=== PATIENT | female | born 1955 | race Caucasian/White ===

== ENCOUNTER 2021-09-09 20:23 | Inpatient (IN) | payer OTHER ==
[~2021-09-09] VITALS: Ht 157.5 cm; Wt 71.0 kg
--- NOTE | ~2021-09-09 | EMS ---
[address] [address] EMS Patient Care Report Name: PILAR MADRID Room #: REG SEBASTIAN Dee#: [id number] Admission: 09/09/21 Attend Phys: Discharge: Date of : 59 Report #: [id number] THIS REPORT FOR: //name// Report Transmitted: 09/09/2021 21:44 EMS Care Summary [place], [place]/[facility] Incident [id number] @ 09/09/2021 19:51 Incident Location [address] [place] [address]-A Patient PILAR MADRID Female, 66 Years 1955 Patient Address [address] [place] [address] [address] [address] Patient History Behavioral/Psychiatric Disorder,Congestive Heart Failure (CHF),Chronic Obstructive Pulmonary Disease (COPD),Diabetes,Hypertension (HTN),Stroke/CVA,Parkinson's Disease,Fibromyalgia,Gastro-Esophageal Reflux Disease (GERD),Urinary Tract Infection (UTI),Schizophrenia,Anemia,Deep Vein Thrombosis, Patient Allergies Sulfonamides allergy,Sulfa,Haldol,Other drug allergy, Chief Complaint general pain Disposition Transported No Lights/[facility] Dispatch Reason Sick Person Transported To [facility] Narrative pt found seated in wheelchair, a&o. staff reports that pt has had slurred [address] [address] EMS Patient Care Report Name: PILAR MADRID Room #: REG SEBASTIAN Dee#: [id number] Admission: 09/09/21 Attend Phys: Discharge: Date of : 59 Report #: [id number] speech and general weakness that has been getting worse over the past 1 wk. they are concerned that she is "getting septic" and want her transported to [facility] for evaluation. pt c/o her body hurting "all over" for past 2+ months. pt req eval at [facility] or [facility]. staff states pt is not her own guardian and for insurance reasons, she can only go to [facility]. pt to cot, VS, transport w/o change. Initial Vitals @20:04P: 107,R: 18,BP: 105/78,Pain: 4/10,GCS: 15,Glucose: 183,SpO2: 99,Revised Trauma: 12, Assessments @19:57MENTAL:No Abnormalities,SKIN:No Abnormalities,HEENT:Head/Face: No Abnormalities,LUNG SOUNDS:ABDOMEN:PELVIS//GI:EXTREMITIES:PULSE:Radial: 2+ Normal,NEURO:Slurred Speech, Impression Pain (Non-Traumatic) Procedures @20:00 Stretcher Response: Unchanged @19:57 ALS Assessment Response: Unchanged @20:04 3-Lead ECG Response: Unchanged Timeline 19:50,Call Received 19:50,Dispatch Notified 19:51,Dispatched 19:51,En Route 19:55,On Scene 19:57,At Patient 19:57,ALS Assessment,Response: Unchanged 20:00,Stretcher,Response: Unchanged 20:04,BP: 105/78 M,PULSE: 107,RR: 18 R,SPO2: 99 Ox,ETCO2: ,B,PAIN: 4,GCS: 15, 20:04,3-Lead ECG,Response: Unchanged 20:06,Depart Scene 20:20,At Destination 20:37,Call Closed Disclaimer v1.1 Copyright 2020 [employer] This EMS Care Summary contains data elements from the applicable legal record (which may be displayed differently). It is designed to provide pertinent information for the following purposes: continuity of care, clinical quality, [address] [address] EMS Patient Care Report Name: PILAR MADRID Lidya Room #: REG SEBASTIAN Dee#: [id number] Admission: 09/09/21 Attend Phys: Discharge: Date of : 59 Report #: [id number] and state data reporting. The complete legal record is available to ED staff and administrators of the receiving hospital in [employer]'s Patient Tracker. All data is provided "as is."
--- NOTE | ~2021-09-09 | O ---
[facility] [place] [address] [place] [address] OPERATIVE REPORT Name: PILAR MADRID Room #: 246-P ADM IN M.R.#: [id number] Admission: 09/10/21 Attend Phys: Rafael Johnson MD Discharge: Date of : 59 Report #: [id number] THIS REPORT FOR: cc: Long Chin MD, Srinath MD Patterson,Alexandre Menendez MD ~ DATE OF SERVICE: 09/11/2021 PREOPERATIVE DIAGNOSIS: Sepsis with concern for ischemic bowel. POSTOPERATIVE DIAGNOSIS: Normal bowel without evidence of ischemic bowel. OPERATION: Diagnostic laparoscopy. SURGEON: Alexandre Marc MD ANESTHESIA: General. ESTIMATED BLOOD LOSS: Minimal. SPECIMENS: None. DESCRIPTION OF PROCEDURE: After informed consent was obtained, the patient was brought to the operating room and placed supine. SCDs were placed and working and general anesthesia was induced. The abdomen was prepped and draped in the usual sterile fashion. A 5 mm incision was made in the left upper quadrant. A 5 mm trocar was placed under direct vision. Pneumoperitoneum was established. Two more 5 mm trocars were placed in the left side of the abdomen. I began by examining the small bowel. I was able to grasp the small bowel and examine all of the small bowel from the cecum to the ligament of Treitz. There was no evidence of small bowel ischemia and it was all normal in color. I examined the colon. The ascending colon was normal. The transverse colon was identified. The sigmoid colon was identified. There was no evidence of ischemia. The liver was somewhat cirrhotic. There was scarring up in the right upper quadrant in the gallbladder fossa presumably from a laparoscopic cholecystectomy. Stomach appeared normal as well. The ports were then removed under direct vision. The skin was closed with 4-0 Monocryl. Incisions were dressed with Steri-Strips. COMPLICATIONS: None. DISPOSITION: The patient was taken to recovery in satisfactory condition. By: 1540 [id number] Alexandre Marc MD /nt
[2021-09-09 20:32] VITALS: BP 111/83
[2021-09-09 21:08] LABS: ABSOLUTE NEUTROPHILS 6.2 thou/uL (1.4-8.2); BASOPHILS 1.4 % (0.0-2.0); EOSINOPHILS 0.9 % (0.0-3.0); HEMATOCRIT 30.9 % (37.0-47.0); HEMOGLOBIN 9.4 gm/dL (12.0-15.0); LYMPHOCYTES 29.4 % (24.0-44.0); MCH 24.4 pg (26.0-34.0); MCHC 30.3 g/dL (28.0-37.0); MCV 80.3 fL (80.0-100.0); MONOCYTES 8.7 % (1.0-8.0); PLATELET COUNT 527 thou/uL (150-400); POLYS 59.6 % (36.0-66.0); RBC 3.85 mil/uL (4.20-5.00); RDW 16.9 % (10.5-14.5); WBC 10.5 thou/uL (4.0-11.0)
[2021-09-09 21:15] LABS: CALCIUM 8.6 mg/dL (8.5-10.1); CREATININE 1.5 mg/dL (0.6-1.0)
[2021-09-09 21:17] LABS: POTASSIUM 3.6 mmol/L (3.5-5.1)
[2021-09-09] MEDS ORDERED: ASA81BEC PO (21:35)
[2021-09-09] MEDS ORDERED: ELIQUIS2.5 MG PO (21:35)
[2021-09-09] MEDS ORDERED: XANAX 0.5 MG0.5 M1 PO (21:35)
[2021-09-09] MEDS ORDERED: LIPITOR 20 MG T20 M1 PO (21:36)
[2021-09-09] MEDS ORDERED: ATIVAN1 M1 IM (21:36)
[2021-09-09] MEDS ORDERED: DULOXETINE HCL30 MG PO (21:45)
[2021-09-09] MEDS ORDERED: IPRAT-ALBUT 0.5-3 ML INH (21:46)
[2021-09-09] MEDS ORDERED: OLANZAPINE ODT5 MG PO (21:46)
[2021-09-09] MEDS ORDERED: METOPROLOL TART25 MG PO (21:46)
[2021-09-09] MEDS ORDERED: KLOR-CON M2020 MEQ PO (21:47)
[2021-09-09] MEDS ORDERED: PROTONIX40 M2 PO (21:47)
[2021-09-09 22:15] LABS: URINE BILIRUBIN NEGATIVE (Negative); URINE BLOOD 2+ (Negative); URINE CLARITY SL CLOUDY; URINE COLOR YELLOW; URINE GLUCOSE-RANDOM* NEGATIVE (Negative); URINE KETONES NEGATIVE (Negative); URINE NITRITE-REFLEX NEGATIVE (Negative); URINE PROTEIN (DIPSTICK) TRACE (Negative)
[2021-09-09 22:18] LABS: URINE LEUKOCYTES-REFLEX 2+ (Negative)
[2021-09-09 22:22] LABS: BACTERIA-REFLEX >30 Many /HPF (None Seen); CASTS None Seen /LPF (None Seen); CRYSTALS None Seen /LPF (None Seen); SQUAMOUS 0-3 Few /LPF (0-3); URINE RBC 3-10 Few /HPF (NONE SEEN)
[2021-09-09 22:23] LABS: WBC CLUMPS Few (None Seen)
[2021-09-10] VITALS (37 sets, daily range): BP systolic 89–134; BP diastolic 59–92
--- NOTE | 2021-09-10 03:50 | NUR ---
PT WAS ADMITTED FROM THE ER IN A STABLE CONDITION.PT HAD EMESIS X2 IMMEDIATELY SHE GOT ON THE FLOOR.ADMISSION HX,EDUCATION AND ASSESSMENT COMPLETED.LAB CRITICAL LACTIC ACID OF 5.1,MANAGER OF RADIOLOGY ON DUTY NOTIFIED,ORDER NOTED AND CARRIED OUT.PT ON TELE,ST.PT STILL NEED SPUTUM CX.CALL LIGHT WITHIN REACH.
--- NOTE | 2021-09-10 08:15 | EKG ---
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: : 1955 Requested By: Shen Fall Order Number: [id number] MD: Lito Gusman Measurements Intervals [place] Rate: 109 P: 71 CO: 136 QRS: 91 QRSD: 95 T: 75 QT: 504 QTc: 680 Interpretive Statements Sinus tachycardia Probable left atrial enlargement Anterior infarct, old Prolonged QT interval No previous ECG available for comparison Electronically Signed On 09-10-2021 8:15:08 BACK OFFICE MEDICAL ASSISTANT by Lito Gusman [email or web address] <ELECTRONICALLY SIGNED> By: Lito Gusman MD, [facility] 09/10/21814 34 34 Lito Gusman MD, FACC /EPI
--- NOTE | 2021-09-10 09:39 | NUR ---
Assumed care of pt at 0700. Pt alert but forgetful. Critical lactic acid. Provider notified. New orders noted. ID consulted, CT scan, and labs ordered. Pt to be transferred to ICU. Waiting on bed assignment. Pt tachycardic on tele monitor. C/o back pain. IVF infusing. Call light within reach. Fall precautions in place. Will continue to monitor.
[2021-09-10 12:54] LABS: ALBUMIN 2.6 g/dL (3.4-5.0); DIRECT BILIRUBIN 1.4 mg/dL (<0.1-0.2); TOTAL BILIRUBIN 2.2 mg/dL (0.2-1.0); TOTAL PROTEIN 7.4 g/dL (6.4-8.2)
[2021-09-10 13:00] LABS: INR 2.74; PROTIME 28.5 Seconds (10.5-12.1)
[2021-09-10 13:10] LABS: BE(vivo) -10.6 mmol/L (-2 to +3); HCO3 13.9 mmol/L (22.0-26.0); PCO2 26.7 mmHg (35.0-45.0); PO2 78.9 mmHg (80.0-100.0); pH 7.335 (7.360-7.450); sO2 95.2 % (92.0-98.0)
--- NOTE | 2021-09-10 16:37 | NUR ---
RT IJ PLACED IN ICU
--- NOTE | 2021-09-10 18:28 | NUR ---
PT ARRIVED TO UNIT AT 1330. PT WAS COMPLAINING OF A LOT OF PAIN. PT IS NPO SO RN CALLED DR AMOS AND GOT AN ORDER FOR DILAUDID. PT HAD ORDERS FOR TRANSFUSION OF 2 UNIT OF FFP. LAB NEVER CAME UNTIL 1803 TO GET TYPE AND SCREEN. RN CALLED 3 DIFFERENT TIMES TO HAVE THEM COME TO PUT BAND ON PT AND RN DRAW LAB. PT IS ALSO TO HAVE A CTA OF THE ABD AND PELVIS. RN UNABLE TO LEAVE UNIT DUE TO ONLY ONE OTHER NURSE IN ICU POD 2 WITH RN. WELL LOGGING CAPTAIN WAS UNABLE TO HELP. RN CALLED CT TWICE WITH NO ANSWER TO LET THEM KNOW THAT IT WILL BE TRAFFIC SIGNAL SUPERVISOR MAINTENANCE RN THAT BRINGS HER TO CT. PT HAD A CETNRAL LINE PLACED TODAY. CONSENT WAS RULED MEDICAL NECESSITY WITH DR AMOS SIGNING IT. PT HAD XRAY OF CHEST TO CONFIRM PLACEMENT OF CENTRAL LINE. RN NOTIFIED IV NURSE. IV NURSE SAID THAT IT WAS IN THE RIGHT PLACE AND SHE CONFIRMED IT WITH THE DEVICE THAT SHOWS THE RHYTHM BASED ON WHERE THE TIP OF THE CATHETER IS PLACED. PT ANNALISA KATZ VISITED TODAY AND SIGNED THE BLOOD CONSENT. 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 WHERE PT IS NORMALLY SEEN. PT IS ALSO A SMOKER. RN WILL ELAVE MESSAGE WITH DR JAQUEZ ABOUT TUMOR. WILL CONITUE TO MONITOR.
--- NOTE | 2021-09-10 22:05 | NUR ---
TWO NURSES WITNESSED VERBAL CONSENT FOR POSSIBLE PARACENTISIS IN THE AM. CONSENT OBTAINED FROM BOLIVAR MALAVE. PER US REQUEST TO OBTAIN CONSENT.
--- NOTE | 2021-09-10 22:24 | NUR ---
PT SLEEPING IN BED. EASILY AROUSED BY NAME. AWAKENS OPENS EYES AND SMILES, FOLLOWS COMMANDS. MINIMAL VERBAL RESPONSE TO NURSE. PALE COOL SKIN TONE. IVF AND RIJ INTACT. JAMES TO DD, LIGHT YELLOW URINE. O2 NC 2L, LUNGS WHEEZES. TALKED WITH PT PRODUCTION LAPPING MACHINE OPERATOR AND RECEIVED CONSENT FOR AM PARACENTISIS. PT REMAINS NPO. TELE ST. PROVIDED NS BOLUS.
[2021-09-11] VITALS (45 sets, daily range): BP systolic 97–136; BP diastolic 50–113
--- NOTE | 2021-09-11 00:25 | NUR ---
PT TAKEN TO CTA, PT SCREAMED REPETITIVELY THAT SHE WANTED HER [employer] BOOK, WATER DURING TRANSPORT. PT WOULD INTERMITTENTLY SETTLE DOWN AND NOT VERBALIZE OR YELL HER REQUESTS. PT C/O BACK PAIN UPON RETURN AND PRN PROVIDED. PT IS NPO MOUTH SWABS PROVIDED. MRSA SWAB SENT TO LAB.
[2021-09-11 02:07] LABS: INR 2.25; PROTIME 23.6 Seconds (10.5-12.1)
[2021-09-11 04:18] LABS: HEMATOCRIT 30.1 % (37.0-47.0); HEMOGLOBIN 8.8 gm/dL (12.0-15.0); MCH 24.4 pg (26.0-34.0); MCHC 29.3 g/dL (28.0-37.0); MCV 83.1 fL (80.0-100.0); RBC 3.62 mil/uL (4.20-5.00); WBC 24.7 thou/uL (4.0-11.0)
[2021-09-11 04:25] LABS: CALCIUM 7.9 mg/dL (8.5-10.1); CREATININE 1.7 mg/dL (0.6-1.0); MAGNESIUM 1.5 mg/dL (1.8-2.4); POTASSIUM 3.6 mmol/L (3.5-5.1)
--- NOTE | 2021-09-11 11:22 | 2DMMODE ---
[facility] [place] [address] [address] 2 D/M-MODE ECHOCARDIOGRAM Name: PILAR MADRID Room #: 246-P ADM IN M.R.#: [id number] Admission: 09/10/21 Attend Phys: Rafael Johnson MD Discharge: Date of : 59 Report #: [id number] THIS REPORT FOR: cc: Long Chin MD, Srinath MD Mancuso,Bc Garcia MD [facility] ~ APPROVED REPORT Study performed: 09/11/2021 08:57:06 EXAM: Comprehensive 2D, Doppler, and color-flow Echocardiogram Patient Location: ICU Room #: 246 Status: routine BSA: 1.47 HR: 108 bpm BP: 136/113 mmHg Rhythm: Tachycardia Other Information Study Quality: Good Indications COPD Diabetes Dyspnea Tachycardia Hypertension/HDD 2D Dimensions RVDd: 42.22 mm IVSd: 9.29 (7-11mm) LVOT Diam: 17.60 (18-24mm) LVDd: 58.45 mm PWd: 10.46 (7-11mm) Ascending Ao: 28.43 (22-36mm) LVDs: 53.10 (25-40mm) Left Atrium: 38.78 (27-40mm) Aortic Root: 28.66 mm IVC: 20.00 mm Volumes Left Atrial Volume (Systole) Single Plane 4CH: 47.67 mL Single Plane 2CH: 51.22 mL LA ESV Index: 37.00 mL/m2 Aortic Valve [facility] [address] [place] [address] 2 D/M-MODE ECHOCARDIOGRAM Name: PILAR MADRID Room #: 246-P [facility] IN .R.#: [id number] Admission: 09/10/21 Attend Phys: Rafael Johnson, Discharge: Date of : 59 Report #: [id number] AoV Peak Fredy.: 1.40 m/s AO Peak Gr.: 7.84 mmHg LVOT Max P.38 mmHg LVOT Max V: 1.05 m/s ALICIA Vmax: 1.82 cm2 Pulmonary Valve PV Peak Fredy.: 0.85 m/s PV Peak Gr.: 2.87 mmHg Tricuspid Valve TR Peak Fredy.: 3.08 m/s TR Peak Gr.: 37.89 mmHg PA Pressure: 48.00 mmHg Left Ventricle Left ventricle is dilated. There is global hypokinesis of the left ventricle. There is normal left ventricular wall thickness. Left ventricular ejection fraction is severely decreased. LVEF is 20-25%. This study is not technically sufficient to allow evaluation of the LV diastolic function. Right Ventricle Right ventricle is at the upper limits of normal. The right ventricular systolic function is normal. Atria Left atrium is dilated. Right atrium is dilated. Aortic Valve The aortic valve is normal in structure. No aortic regurgitation is present. There is no aortic valvular stenosis. Mitral Valve The mitral valve is normal in structure. Moderate to severe mitral regurgitation No evidence of mitral valve stenosis. Tricuspid Valve The tricuspid valve is normal in structure. There is moderate to severe tricuspid regurgitation. Estimated PAP 48 mmHg. There is moderate pulmonary hypertension. Pulmonic Valve The pulmonary valve is normal in structure. There is no pulmonic valvular regurgitation. Great Vessels The aortic root is normal in size. IVC is dilated and collapses [facility] [address] [place] [address] 2 D/M-MODE ECHOCARDIOGRAM Name: PILAR MADRID Room #: 246-P [facility] IN M.R.#: [id number] Admission: 09/10/21 Attend Phys: Rafael Johnson, Discharge: Date of : 59 Report #: [id number] <50% with inspiration. Pericardium There is no pericardial effusion. <Conclusion> Left ventricle is dilated. Left ventricular ejection fraction is severely decreased. There is global hypokinesis of the left ventricle. LVEF is 20-25%. This study is not technically sufficient to allow evaluation of the LV diastolic function. Right ventricle is at the upper limits of normal. Left atrium is dilated. The aortic valve is normal in structure. Moderate to severe mitral regurgitation There is moderate to severe tricuspid regurgitation. Estimated PAP 48 mmHg. There is moderate pulmonary hypertension. The aortic root is normal in size. There is no pericardial effusion. <ELECTRONICALLY SIGNED> By: Bc De Anda MD, FACC 09/11/211121 21 21 Bc De Anda MD, FACC /INF
--- NOTE | 2021-09-11 11:40 | HC ---
[facility] [address] [place] [address] CONSULTATION Name: PILRA MADRID Room #: 246-P ADM IN M.R.#: [id number] Admission: 09/10/21 Attend Phys: Rafael Johnson MD Discharge: Date of : 59 Report #: [id number] THIS REPORT FOR: cc: Long Chin MD, Srinath MD Geha,Tyler Gracia MD ~ DATE OF SERVICE: 09/10/2021 REASON FOR CONSULTATION: I was asked to evaluate concerning sepsis. HISTORY OF PRESENT ILLNESS: The patient is a 66-year-old with underlying history of Parkinson's disease and schizophrenia along with diabetes, who had been in usp unit in [facility] who has had a change in mental status over the last several days associated with weakness and back pain. She has had cough with purulent sputum production. No nausea, vomiting or diarrhea reported. No dysuria reported. The patient currently was unable to give me any significant history. She did complain of back pain. REVIEW OF SYSTEMS: A 14-point review was negative other than what has been described above as the patient denied any other symptoms. PAST MEDICAL HISTORY: Parkinson's disease, schizophrenia, gastroesophageal reflux, COPD, diabetes, congestive heart failure, seizure disorder, hypertension, fibromyalgia, anemia, hyperlipidemia, DVT. SOCIAL HISTORY: Nonsmoker, no significant alcohol intake. long-term resident at the present time. FAMILY HISTORY: Not available. ALLERGIES: CARBAMAZEPINE, HALOPERIDOL, SULFA. MEDICATIONS: As noted on her MAR, having received vancomycin, cefepime and now Zosyn. PHYSICAL EXAMINATION: VITAL SIGNS: Temperature is 36.8, pulse 108, respiratory rate 16, blood pressure 105/73, pulse ox 97% on room air. She was lethargic and would yell out at times. She appeared confused. SKIN: Without rash or decubitus. HEENT: No palpable adenopathy. Eyes without scleral icterus or conjunctivitis. Mouth without mucositis. NECK: Supple. LUNGS: Clear. HEART: Regular without appreciable murmur, gallop or rub. She was tachycardic. ABDOMEN: Protuberant, however, was soft, did not appear tender or have any [facility] [address] [place] [address] CONSULTATION Name: PILAR MADRID Room #: [facility]- ADM IN .R.#: [id number] Admission: 09/10/21 Attend Phys: Rafael Johnson MD Discharge: Date of : 59 Report #: [id number] hepatosplenomegaly or mass. There was definitely no guarding or rebound. No definite CVA tenderness. She had some ecchymosis to the left flank. Spine was nontender. Genitorectal examination was not performed. EXTREMITIES: Without clubbing or cyanosis. She had 1+ lower extremity edema. Pulses were palpable in the extremities. Cranial nerves intact. Strength in upper and lower extremities was symmetric. Mood was sedate and confused. LABORATORY DATA: Reviewed. MICROBIOLOGY: Reviewed. IMAGING: CT scan of the chest, abdomen and pelvis as well as head reviewed. Chest x-ray reviewed. IMPRESSION: This is a 66-year-old with underlying schizophrenia, diabetes, chronic obstructive pulmonary disease, presents with severe sepsis with metabolic encephalopathy, lactic acidosis with anemia and thrombocytosis. She also has evidence of acute kidney injury and hepatitis with elevated alkaline phosphatase. She has had previous cholecystectomy. No other liver lesions noted. No intra-abdominal abscess noted. She does have ascites. This is in the setting of schizophrenia, Parkinson's disease, diabetes, COPD, hypertension, depression, and DVT. Recommend continuing broad antibiotic coverage. Check blood cultures, urine culture, paracentesis for cell count and culture. Await surgical consultation and check vascular studies to further assess for bowel ischemia. Correct her coagulopathy. Check echocardiogram. <ELECTRONICALLY SIGNED> By: Tyler Smith MD 09/11/21 1140 1354 1721 Tyler Smith MD /nt
[2021-09-11 12:33] LABS: BE(vivo) -17.6 mmol/L (-2 to +3); HCO3 10.9 mmol/L (22.0-26.0); PCO2 35.8 mmHg (35.0-45.0); PO2 66.8 mmHg (80.0-100.0); sO2 85.9 % (92.0-98.0)
[2021-09-11 12:34] LABS: pH 7.101 (7.360-7.450)
--- NOTE | 2021-09-11 14:05 | NUR ---
VAT CALLED PT PULLED OUT RIJ. REPLACEMENT NEEDED. PT VERY CONFUSED AND UNCOOPERATIVE, TRYING TO SIT UP. LIJ WAS WIDELY PATENT WITH USG. 6FR TL JACC 20CM INSERTED X1 STICK TO 3CM EXTERNAL. BLEEDING AT SITE, GAUZE AND PRESSURE APPLIED. STAT CXR ORDERED
--- NOTE | 2021-09-11 14:18 | NUR ---
CXR CONFIRMED LIJ PLACEMENT, IJ RELEASED FOR IMMEDIATE USE PER PROTOCOL.
--- NOTE | 2021-09-11 15:08 | NUR ---
PT IS NOT PROGRESSING TOWARDS DISCHARGE AT THIS TIME, AT THE TIME OF RN'S CARE IT WAS NOTED THAT PT'S LACTIC ACID VALUE IS INCREASING, MD PRATT/BETTE MADE AWARE, CRITICAL PH LEVEL ALSO MADE AWARE TO BOTH PROVIDERS. PT WAS NEEDING INCREASING OXYGENATION THROUGHOUT THE DAY FROM 2L MANAGER SUPPORT THE PT NEEDED TO THE NRB. CONCERNS FOR ISCHEMIC BOWEL RAISED, IS TO PERFORM DIAGNOSTIC LAPARSCOPY/LAPAROTOMY, FAMILY MADE AWARE. PT RIPPED OUT JR CENTRAL LINE, FAMILY MADE AWARE, NEW LINE PLACED FAMILY MADE AWARE AND CONSENT OBTAINED. PT ALSO RULED OUT FOR ASCITES FROM RADIOLOGIST AND DID NOT RECEIVE THE PARACFENTESIS. FFP ORDERED BY , FFP CALLED OUT TO THE BLOOD BANK, NOTIFIED THE STAFF THAT PT WILL NEED IT AT THE OR AT THE TIME OF ARRIVAL PT'S BLOOD SUGAR WAS AT 61, 1 AMP OF GLUCOSE GIVEN PER PROTOCOL, WILL HAVE TO RECHECK BLOOD SUGAR AT THE OR PER RECHECK POLICY, OR STAFF MADE AWARE ZOSYN NOT GIVEN DUE TO PRIORITY OF CARE, AND NEEDING FOR INFUSION OF LR/ .45NS/AND HCO3. OR STAFF MEMBERS GIVEN THE MEDICATION, THEM TO INFUSE. RN INTERVENED ALL MEASURES FOR THE PATIENT PROMPT POSSIBLE AND PT AT THIS TIME IS EN ROUTE TO OR.
--- NOTE | 2021-09-11 16:52 | NUR ---
INITIAL ASSESSMENT: RUBEN reviewed chart and spoke with nursing and attending physician. Pt was admitted from [facility] due to sepsis. Pt is in the ICU and went to surgery this afternoon. Pt currently off the unit. RUBEN updated jamal Fisher liaison at [place]. Per chart, pt with hx of Parkinson's Disease/schizophrenia/COPD/Seizure disorder. RUBEN faxed clinical info to the facility for review. RUBEN will follow up with pt and/or family following surgery and is following to assist as needed with discharge planning.
[2021-09-11 17:16] LABS: BE(vivo) -16.7 mmol/L (-2 to +3); HCO3 14.1 mmol/L (22.0-26.0); PCO2 58.8 mmHg (35.0-45.0); PO2 208.1 mmHg (80.0-100.0); pH 6.998 (7.360-7.450); sO2 98.8 % (92.0-98.0)
[2021-09-11 19:37] LABS: BE(vivo) -6.2 mmol/L (-2 to +3); HCO3 19.5 mmol/L (22.0-26.0); PCO2 39.5 mmHg (35.0-45.0); PO2 76.9 mmHg (80.0-100.0); pH 7.311 (7.360-7.450); sO2 94.3 % (92.0-98.0)
[2021-09-11 21:47] LABS: HEMATOCRIT 24.2 % (37.0-47.0); HEMOGLOBIN 7.7 gm/dL (12.0-15.0); MCH 25.9 pg (26.0-34.0); MCHC 31.8 g/dL (28.0-37.0); MCV 81.6 fL (80.0-100.0); RBC 2.97 mil/uL (4.20-5.00); RDW 16.7 % (10.5-14.5); WBC 22.3 thou/uL (4.0-11.0)
[2021-09-12] VITALS (46 sets, daily range): BP systolic 107–130; BP diastolic 55–85
[2021-09-12 04:43] LABS: BE(vivo) -3.5 mmol/L (-2 to +3); HCO3 20.5 mmol/L (22.0-26.0); PCO2 32.4 mmHg (35.0-45.0); PO2 87.1 mmHg (80.0-100.0); pH 7.419 (7.360-7.450); sO2 96.9 % (92.0-98.0)
--- NOTE | 2021-09-12 04:47 | NUR ---
PT TEMP AT 0400 UP TO 103.3 F ORALLY. PT STILL HAD BEAR HUGGER ON AT MEDIUM TEMP. BEAR HUGGER NOW OFF, PT UNCOVERED, AND WILL CONTINUE TO MONITOR TEMP. LACTIC ACID TRENDING DOWN, STARTED AT 10.9 NOW DOWN TO 7.8 OF 020. URINE OUTPUT HAD BEEN < 10 CC/HR. PT GIVEN LASIX IVP PER ORDER DR. PRATT AND URINE OUTPUT HAS BEEN 30-40 CC/HR SINCE 99. QUAD STRENGTH LEVOPHED STARTED AT 0145 FOR SBP <90 AND MAP < 60, CURRENTLY AT 6 MCG/MIN. PT WAS CHANGED TO PC/AC VENTILATION AT 0100 PT WAS DYSYNCHRONOUS WITH VENT. CURRENT VENT SETTINGS PC 22, AC 18, PEEP 8, PT RETURN Tv 550-600, MINUTE VOLUME 8-10. CVP WAS 24 AT BEGINNING OF SHIFT NOW DOWN TO 14-17.
[2021-09-12 05:46] LABS: ABSOLUTE NEUTROPHILS 13.1 thou/uL (1.4-8.2); BASOPHILS 0.1 % (0.0-2.0); HEMATOCRIT 23.4 % (37.0-47.0); HEMOGLOBIN 7.2 gm/dL (12.0-15.0); MCH 24.5 pg (26.0-34.0); MCHC 30.7 g/dL (28.0-37.0); MCV 79.7 fL (80.0-100.0); MONOCYTES 6.8 % (1.0-8.0); PLATELET COUNT 348 thou/uL (150-400); POLYS 88.1 % (36.0-66.0); RBC 2.94 mil/uL (4.20-5.00); RDW 16.9 % (10.5-14.5); WBC 14.9 thou/uL (4.0-11.0)
[2021-09-12 05:52] LABS: APTT 36.7 Seconds (24.5-32.8); INR 2.54; PROTIME 26.5 Seconds (10.5-12.1)
[2021-09-12 06:05] LABS: ALBUMIN 2.2 g/dL (3.4-5.0); CALCIUM 6.9 mg/dL (8.5-10.1); CREATININE 2.3 mg/dL (0.6-1.0); MAGNESIUM 1.2 mg/dL (1.8-2.4); TOTAL BILIRUBIN 1.4 mg/dL (0.2-1.0); TOTAL PROTEIN 5.8 g/dL (6.4-8.2)
[2021-09-12 06:30] LABS: POTASSIUM 2.9 mmol/L (3.5-5.1)
--- NOTE | 2021-09-12 08:09 | NUR ---
ORDERS FOR EVAL AND TREAT HOWEVER Pt HAD SURGERY YESTERDAY AND NOW ON VENT AND IN RESTRAINTS. WILL PLACE ON HOLD AND AWAIT NEW ORDERS WHEN APPROPRIATE
--- NOTE | 2021-09-12 12:08 | NUR ---
RUBEN reviewed chart and spoke with nursing and attending physician. Pt remains in ICU. Pt is intubated and in restraints. Pt had surgery yesterday. Pt to have a thoracentesis today. OG tube to be placed and tube feeding will be started. RUBEN updated jamal Fisher liaison at [facility]. No family present at bedside. RUBEN is following to assist as needed with discharge planning.
[2021-09-12 13:10] LABS: COLOR YELLOW; SOURCE THORACENTESIS; TOTAL VOLUME 65 mL
[2021-09-12 13:11] LABS: CLARITY CLEAR
[2021-09-12 13:41] LABS: BF NUCLEATED CELLS 387 /mm3; BF RBC 782 /mm3
[2021-09-12 14:17] LABS: MAGNESIUM 2.8 mg/dL (1.8-2.4); POTASSIUM 3.4 mmol/L (3.5-5.1)
[2021-09-12 17:35] LABS: BF MACROPHAGE 33 %; BF NEUTROPHILS 38 %
[2021-09-13 03:48] VITALS: BP 96/66
[2021-09-13 05:27] LABS: HEMATOCRIT 23.3 % (37.0-47.0); HEMOGLOBIN 7.3 gm/dL (12.0-15.0); MCH 24.8 pg (26.0-34.0); MCHC 31.4 g/dL (28.0-37.0); RBC 2.95 mil/uL (4.20-5.00); RDW 17.2 % (10.5-14.5)
[2021-09-13 06:05] LABS: ALBUMIN 1.8 g/dL (3.4-5.0); CALCIUM 6.6 mg/dL (8.5-10.1); CREATININE 2.5 mg/dL (0.6-1.0); MAGNESIUM 2.1 mg/dL (1.8-2.4); TOTAL BILIRUBIN 1.4 mg/dL (0.2-1.0); TOTAL PROTEIN 5.4 g/dL (6.4-8.2)
[2021-09-13 06:18] LABS: POTASSIUM 2.6 mmol/L (3.5-5.1)
--- NOTE | 2021-09-13 13:13 | NUR ---
RN TURNED PROPOFOL GTT OFF AT 0907. PT HAS SHOWN NO RESPONSE YET. WILL CONTINUE TO [facility] FOR NEURO RESPONSE. RN CHECKED PT 1200 TUBE FEED RESIDUAL. RESIDUAL WAS 250 ML. PT HAD RECIEVED A 250 ML WATER BOLUS SINCE LAST TUBE FEED RESIDUAL CHECK. RN CONTINUED TUBE FEED AT GOAL RATE OF 35 ML/HR. RN TURNED OFF LEVOPHED DRIPP AT 1300. RN WILL COONTINUE TO MONITOR PT BP VIA ARTERIAL LINE. RN SANTHOSH PT POTASSIUM FOR REDRAW AFTER REPLCED 2 POTASSIUM BAGS FOR 2.6 POTASSIUM THIS AM. APTT DRAWN AT 1300 FOR HEPARIN GTT.
--- NOTE | 2021-09-13 15:54 | NUR ---
RUBEN reviewed chart and spoke with nursing and attending physician. Pt remains in ICU. Pt is intubated. POD #2. Pt is on heparin gtt. Tube feedings through OG tube. RUBEN updated Diane at [facility]. SW to fax clinical updates for review. RUBEN is following to assist as needed with discharge planning.
[2021-09-13 23:36] VITALS: BP 106/64
[2021-09-14 01:21] VITALS: BP 93/57
[2021-09-14 02:43] LABS: ALBUMIN 1.8 g/dL (3.4-5.0); CALCIUM 6.9 mg/dL (8.5-10.1); CREATININE 2.4 mg/dL (0.6-1.0); HEMATOCRIT 26.6 % (37.0-47.0); HEMOGLOBIN 8.2 gm/dL (12.0-15.0); MAGNESIUM 1.9 mg/dL (1.8-2.4); MCH 24.2 pg (26.0-34.0); MCHC 30.8 g/dL (28.0-37.0); MCV 78.5 fL (80.0-100.0); POTASSIUM 3.3 mmol/L (3.5-5.1); RBC 3.39 mil/uL (4.20-5.00); RDW 17.2 % (10.5-14.5); TOTAL BILIRUBIN 1.3 mg/dL (0.2-1.0); WBC 16.1 thou/uL (4.0-11.0)
--- NOTE | 2021-09-14 06:33 | NUR ---
PT HEART RATE ELEVATED TO 160'S AFTER BATH. PRN METOPROLOL GIVEN AND AMIODARONE GTT STARTED PER CARDIOLOGY GASKET INSPECTOR DOCTOR. SEE CHARTING. PT HEART RATE BACK DOWN TO LOW 100'S WHICH IS WHERE IT HAD BEEN PRIOR TO BATH.
--- NOTE | 2021-09-14 12:22 | NUR ---
RN KEPT PT TUBE FEED ON THIS MORNING WHEN CHECKING RESIDUAL AT 0800. PT HAD RECEIVED A WATER FLUSH VIA KANGAROO PUMP. RN HELD TUBE FEED AFTER 1200 TF RESIDUAL BC PT HAD NOT RECEIVED A WATER FLUSH AND RESIDUAL WAS 300. RN WILL CHECK RESIDUAL AGAIN AT 1300 WHEN RN TURNS TUBE FEED BACK ON.
[2021-09-14 16:06] LABS: BODY FLUID ALBUMIN 0.8 g/dL (Not Estab.); BODY FLUID AMYLASE 43 U/L (()); BODY FLUID GLUCOSE 265 mg/dL (()); BODY FLUID LDH 187 IU/L (())
--- NOTE | 2021-09-14 16:19 | NUR ---
RUBEN reviewed chart and spoke with nursing and attending physician. Case also discussed during ICU rounds. Pt remains intubated. Pt has been off sedation. RUBEN spoke with pt's listed contact, Frances Shea, via phone. Introduced role of RUBEN. Frances states that she has been the point of contact for pt for while. The pt lived with Frances's parents for a number of years and Frances's family has always taken care of her. Pt has two brothers. Per Frances, pt does have a DPOA document, which appoints Frances's Dad, Matti, as her DPOA. Frances to bring a copy of the ppwk to the hospital. Pt has lived at [facility] since June. Pt was living at [facility] prior to admission at [facility]. 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 Frances confirms plan is for pt to return to [facility] if pt is able. RUBEN faxed updates to [facility]. RUBEN spoke with medical records at [facility], who states that pt does have [place]-Medicaid. Policy # provided. RUBEN notified UR RN an UR tech for verification. [facility] does not have DPOA ppwk on file. RUBEN updated nursing. RUBEN is following to assist as needed with discharge planning.
[2021-09-15] VITALS (53 sets, daily range): BP systolic 79–143; BP diastolic 49–82
--- NOTE | 2021-09-15 00:30 | NUR ---
PATIENT BG RESULTED LOW. RECHECKED TO CONFIRM RESULT. PROTOCOL FOLLOWED AND BG RESULTED TO 168.
--- NOTE | 2021-09-15 05:15 | NUR ---
SPOKE WITH C SOFTWARE DEVELOPER REGARDING CRITICALLY LOW BG AND ORDERS GIVEN FOR IVF AND ALBUMIN. NO OTHER ORDERS RECEIVED. LABS PENDING.
[2021-09-15 05:54] LABS: HEMOGLOBIN 8.2 gm/dL (12.0-15.0); RBC 3.42 mil/uL (4.20-5.00); RDW 17.4 % (10.5-14.5)
[2021-09-15 05:59] LABS: MCHC 29.3 g/dL (28.0-37.0); WBC 17.7 thou/uL (4.0-11.0)
[2021-09-15 06:21] LABS: ALBUMIN 1.6 g/dL (3.4-5.0); CALCIUM 7.3 mg/dL (8.5-10.1); CREATININE 2.8 mg/dL (0.6-1.0); POTASSIUM 4.3 mmol/L (3.5-5.1); TOTAL BILIRUBIN 2.9 mg/dL (0.2-1.0); TOTAL PROTEIN 5.5 g/dL (6.4-8.2)
[2021-09-15 08:21] LABS: BE(vivo) -15.4 mmol/L (-2 to +3); PCO2 27.6 mmHg (35.0-45.0); PO2 72.2 mmHg (80.0-100.0); sO2 91.7 % (92.0-98.0)
[2021-09-15 08:22] LABS: pH 7.217 (7.360-7.450)
--- NOTE | 2021-09-15 15:16 | NUR ---
RUBEN reviewed chart and spoke with nursing and attending physician. Pt remains intubated. Pt has been off sedation. Not following commands. Pt has vent weaning trial this morning. Pt is on IV meds and gtts running. No weekend discharge planned. RUBEN updated [facility] liaison. Will fax updates on Saturday. No family at bedside. DPOA not on pt's chart as of yet. Face sheet from [facility] received. Contact info in [facility] updated. RUBEN is following to assist as needed with dishcarge planning.
[2021-09-15 23:36] LABS: BE(vivo) -12.2 mmol/L (-2 to +3); HCO3 12.7 mmol/L (22.0-26.0); PCO2 26.3 mmHg (35.0-45.0); PO2 89.1 mmHg (80.0-100.0); sO2 96.2 % (92.0-98.0)
[2021-09-15 23:37] LABS: pH 7.303 (7.360-7.450)
[2021-09-16] VITALS (24 sets, daily range): BP systolic 88–120; BP diastolic 44–71
[2021-09-16 05:01] LABS: HEMATOCRIT 25.9 % (37.0-47.0); HEMOGLOBIN 7.6 gm/dL (12.0-15.0); MCH 23.9 pg (26.0-34.0); MCHC 29.6 g/dL (28.0-37.0); MCV 80.9 fL (80.0-100.0); RDW 17.5 % (10.5-14.5); WBC 20.4 thou/uL (4.0-11.0)
[2021-09-16 05:10] LABS: PLATELET COUNT 234 thou/uL (150-400)
[2021-09-16 05:13] LABS: ALBUMIN 2.1 g/dL (3.4-5.0); CREATININE 2.9 mg/dL (0.6-1.0); TOTAL BILIRUBIN 4.2 mg/dL (0.2-1.0); TOTAL PROTEIN 5.6 g/dL (6.4-8.2)
[2021-09-16 06:18] LABS: ABSOLUTE NEUTROPHILS 16.9 thou/uL (1.4-8.2); NUCLEATED RBCS 1 /100WBC
[2021-09-16 06:19] LABS: ANISOCYTOSIS 1+; HYPOCHROMASIA 1+; OVALOCYTES 1+; TOXIC GRANULATION SLIGHT
[2021-09-16 11:37] LABS: BE(vivo) 0.2 mmol/L (-2 to +3); PCO2 35.3 mmHg (35.0-45.0); PO2 66.7 mmHg (80.0-100.0); pH 7.451 (7.360-7.450); sO2 94.2 % (92.0-98.0)
--- NOTE | 2021-09-16 15:18 | NUR ---
PT OVERALL NOT PROGRESSING TOWARDS DISCHARGE AT THIS TIME, PT'S CURRENT STATUS DOES NOT SHOW ANY MENTATIONAL CHANGES SINCE THE START OF THE SHIFT, PT HAS BEEN OFF OF SEDATION MEDICATION FOR SOMETIME NOW AND IS MINIMALLY RESPONSIVE. NOTIFIED REGARDING THE STATUS AND WAS INSTRUCTED TO ALLOW PT MORE TIME TO BE RESPONSIVE. RN WILL CONTINUE TO MONITOR. NO FAMILY HAS CALLED TO THIS POINT AND RN WILL UPDATE STATUS CHANGES.
[2021-09-16 20:03] LABS: BE(vivo) 5.5 mmol/L (-2 to +3); HCO3 28.7 mmol/L (22.0-26.0); PCO2 36.4 mmHg (35.0-45.0); PO2 73.1 mmHg (80.0-100.0); pH 7.515 (7.360-7.450)
--- NOTE | 2021-09-16 21:12 | NUR ---
This RN spoke with Dr. Clay at 1930 regarding patients ABG and critical lactic acids. Orders for vent setting changes and labs. Will implement and continue to monitor.
[2021-09-16 21:38] LABS: BE(vivo) 7.5 mmol/L (-2 to +3); HCO3 31.7 mmol/L (22.0-26.0); PCO2 43.4 mmHg (35.0-45.0); PO2 70.8 mmHg (80.0-100.0); pH 7.481 (7.360-7.450); sO2 95.2 % (92.0-98.0)
[2021-09-16 22:04] LABS: CALCIUM 7.5 mg/dL (8.5-10.1); CREATININE 2.6 mg/dL (0.6-1.0); POTASSIUM 3.4 mmol/L (3.5-5.1)
--- NOTE | 2021-09-16 22:25 | NUR ---
This RN spoke with Dr Clay regarding repeat ABG and lactic acids. Cancelled every 2 hour lactic acids. No other orders received.
[2021-09-17] VITALS (23 sets, daily range): BP systolic 83–116; BP diastolic 50–72
[2021-09-17 04:21] LABS: HEMATOCRIT 24.5 % (37.0-47.0); HEMOGLOBIN 7.6 gm/dL (12.0-15.0); MCH 24.1 pg (26.0-34.0); MCHC 31.1 g/dL (28.0-37.0); MCV 77.5 fL (80.0-100.0); RBC 3.16 mil/uL (4.20-5.00); RDW 17.7 % (10.5-14.5); WBC 15.7 thou/uL (4.0-11.0)
[2021-09-17 04:37] LABS: CALCIUM 7.8 mg/dL (8.5-10.1); CREATININE 2.4 mg/dL (0.6-1.0); POTASSIUM 3.2 mmol/L (3.5-5.1)
[2021-09-17 04:56] LABS: ALBUMIN 1.9 g/dL (3.4-5.0); DIRECT BILIRUBIN 2.7 mg/dL (<0.1-0.2); TOTAL BILIRUBIN 3.3 mg/dL (0.2-1.0); TOTAL PROTEIN 5.1 g/dL (6.4-8.2)
[2021-09-17 05:14] LABS: BE(vivo) 3.4 mmol/L (-2 to +3); HCO3 27.2 mmol/L (22.0-26.0); PCO2 38.3 mmHg (35.0-45.0); sO2 96.7 % (92.0-98.0)
[2021-09-17 13:41] LABS: BE(vivo) 9.9 mmol/L (-2 to +3); HCO3 34.1 mmol/L (22.0-26.0); PCO2 44.7 mmHg (35.0-45.0); PO2 70.1 mmHg (80.0-100.0); sO2 95.2 % (92.0-98.0)
[2021-09-17 14:48] LABS: BE(vivo) 9.7 mmol/L (-2 to +3); HCO3 33.8 mmol/L (22.0-26.0); PO2 69.7 mmHg (80.0-100.0); pH 7.503 (7.360-7.450); sO2 95.2 % (92.0-98.0)
--- NOTE | 2021-09-17 20:22 | NUR ---
PT PROGRESSING TOWARD PLAN OF CARE EVIDENCED BY ADEQUATE URINE OUTPUT AND EXTUBATION. PT WAS EXTUBATED AT 1645 BY RT MELINDA AND WAS PLACED ON FACE SHIELD AT 50% FIO2. SATS REMAINED STABLE THROUGHOUT THE SHIFT POST-EXTUBATION. NEUROLOGICAL IMPAIRMENT PRESENT, PT MOVEMENT IN EXTREMITIES ARE LIMITED AND NOT PURPOSEFUL. PT RESPONDS TO QUESTIONS BY NODDING AND SHAKING HER HEAD AND RESPONDS TO COMMANDS TO MOVE IT SIDE TO SIDE. POST-EXTUBATION, PT BEGAN GRUNTING COMMUNICATION. DURING ROUNDS THIS AM, DR. ARAUJO ORDERED NOT TO RESUME NUTRITION UNTIL POST-EXTUBATION. WILL NEED TO FOLLOW UP ON NUTRITIONAL NEEDS. PER DR. MARIA, R RADIAL ART LINE IS OKAY TO DC. WILMER BOLIVAR WAS AT BEDSIDE AROUND 1330 AND WAS UPDATED REGARDING PT STATUS. BOLIVAR LEFT PRIOR TO EXTUBATION, BUT WAS NOTIFIED BY THIS RN BEFORE PT WAS EXTUBATED AND WAS UPDATED POST-EXTUBATION. BOLIVAR AND HER SISTER WERE BACK AT BEDSIDE AROUND 1715. PT REMAINS STABLE AND NURSING WILL CONTINUE TO FOLLOW PLAN OF CARE.
[2021-09-18] VITALS (17 sets, daily range): BP systolic 90–139; BP diastolic 63–90
[2021-09-18 06:08] LABS: HEMATOCRIT 27.5 % (37.0-47.0); HEMOGLOBIN 8.4 gm/dL (12.0-15.0); MCHC 30.6 g/dL (28.0-37.0); MCV 78.6 fL (80.0-100.0); RBC 3.5 mil/uL (4.20-5.00); RDW 17.8 % (10.5-14.5); WBC 14.5 thou/uL (4.0-11.0)
[2021-09-18 06:17] LABS: CALCIUM 7.9 mg/dL (8.5-10.1)
--- NOTE | 2021-09-18 13:28 | NUR ---
Nurse talked with patients DPOA to update her on patients deteriorating status. Oxygenation is 80% on face sheild and nasal cannula. She is diaphoretic. Blood glucose checked and lab drawn, waiting on confirmation. Nurse to treat is remains critical low. Nurse talked with Dr. Clay in regards to patient sudden deterioration. Okay to give dilaudid as ordered for air hunger.
--- NOTE | 2021-09-18 14:21 | NUR ---
RUBEN reviewed chart and spoke with nursing and attending physician. Case discussed during ICU rounds. Pt was extubated over the weekend. Pt on face shield and NC. ST eval completed today. Palliative care consult ordered to discuss plan of care with pt's DPOA. RUBEN faxed clinical updates to [place] for review. Updated admissions liaison, Natalia. Awaiting input from palliative care at this time. RUBEN is following to assist as needed.
[2021-09-18 17:06] LABS: SOURCE CHEST
--- NOTE | 2021-09-18 17:08 | NUR ---
Patient quite suddenly went into respiratory distress, was diaphoretic and clamy. Oxygen saturation decreased into the lower 80% range. Nurse informed Dr. Clay. He called family and updated DPOA. Nurse then informed Dr. Espinal, orders received. Per Dr. Clay, family wishes for comfort care, palliative care consult placed earlier in the day. DPOA, Frances here as well as patients brother. Nurse talked with them about palliative care and what measures they want or did not want. They expressed they want her comfortable and not in distress. Palliative care arrived, Valeri Busby and talked with them. Orders received. She expressed to disctoninue all medications except what she ordered and to keep the steriod, which may help with her breathing. This was done. Family remains in room and nurse has updated them on her status over the hours.
--- NOTE | 2021-09-19 08:35 | NUR ---
Consult [phone] was completed by this case management assistant. Interdisciplinary team during rounds at 1130 hours discussed her situation and pending comfort care. Prayeer was offered for the patient by this case management assistant. Family was aware of situation and discussed it at length with different staff.
== END 2021-09-18 18:33 | DRG 853 ==
LOC: ER 20:23 → EDBD 20:23 → EROBS 09-10 00:07 → ICU 09-10 00:07 → 4S 09-10 01:12 → ICU 09-10 13:49
PROVIDERS: Hospitalist; Internal Medicine Pulmonary Disease; Nurse Practitioner Family; Pediatrics; Student in an Organized Health Care Education/Training Program; ADMIT Internal Medicine; ATTEND Internal Medicine
PROC: 30233K1 Transfusion of Nonautologous Frozen Plasma into Peripheral Vein, Percutaneous Approach (ICD-10-PCS; principal; 2021-09-10)
PROC: 02H633Z Insertion of Infusion Device into Right Atrium, Percutaneous Approach (ICD-10-PCS; principal; 2021-09-10)
PROC: 0WJP4ZZ Inspection of Gastrointestinal Tract, Percutaneous Endoscopic Approach (ICD-10-PCS; 2021-09-11)
PROC: 5A1955Z Respiratory Ventilation, Greater than 96 Consecutive Hours (ICD-10-PCS; 2021-09-11)
PROC: 0BH17EZ Insertion of Endotracheal Airway into Trachea, Via Natural or Artificial Opening (ICD-10-PCS; 2021-09-11)
PROC: 0W993ZZ Drainage of Right Pleural Cavity, Percutaneous Approach (ICD-10-PCS; 2021-09-12)
DX: A41.9 Sepsis, unspecified organism (principal); N17.0 Acute kidney failure with tubular necrosis; J18.9 Pneumonia, unspecified organism; G92.8 Other toxic encephalopathy; J96.01 Acute respiratory failure with hypoxia; I50.43 Acute on chronic combined systolic (congestive) and diastolic (congestive) heart failure; K72.00 Acute and subacute hepatic failure without coma; R65.21 Severe sepsis with septic shock; N39.0 Urinary tract infection, site not specified; R18.8 Other ascites; J91.8 Pleural effusion in other conditions classified elsewhere; I42.9 Cardiomyopathy, unspecified; D68.9 Coagulation defect, unspecified; M31.9 Necrotizing vasculopathy, unspecified; E46 Unspecified protein-calorie malnutrition; E87.1 Hypo-osmolality and hyponatremia; E87.3 Alkalosis; J44.0 Chronic obstructive pulmonary disease with (acute) lower respiratory infection; I13.0 Hypertensive heart and chronic kidney disease with heart failure and stage 1 through stage 4 chronic kidney disease, or unspecified chronic kidney disease; Z20.822 Contact with and (suspected) exposure to COVID-19; K21.9 Gastro-esophageal reflux disease without esophagitis; G40.909 Epilepsy, unspecified, not intractable, without status epilepticus; E78.5 Hyperlipidemia, unspecified; F32.9 Major depressive disorder, single episode, unspecified; N18.9 Chronic kidney disease, unspecified; F20.9 Schizophrenia, unspecified; D64.9 Anemia, unspecified; E11.22 Type 2 diabetes mellitus with diabetic chronic kidney disease; D75.839 Thrombocytosis, unspecified; K52.9 Noninfective gastroenteritis and colitis, unspecified; G20 Parkinson's disease; I07.1 Rheumatic tricuspid insufficiency; I95.9 Hypotension, unspecified; R74.01 Elevation of levels of liver transaminase levels; Z66 Do not resuscitate; E87.6 Hypokalemia; I48.0 Paroxysmal atrial fibrillation; Z88.7 Allergy status to serum and vaccine; Z88.8 Allergy status to other drugs, medicaments and biological substances; Z68.28 Body mass index [BMI] 28.0-28.9, adult; Z86.718 Personal history of other venous thrombosis and embolism; Z95.828 Presence of other vascular implants and grafts; Z51.5 Encounter for palliative care
CPT/HCPCS: 10078; 50101; 50411; 50455; 50555; 52265; 53307; 56526; 57103; 58574; 62110; 62900; 85076